=== PATIENT | female | born 1980 | race American Indian/Alaskan Native ===

== ENCOUNTER 2018-11-10 09:51 | Emergency (ER) | payer BC ==
[2018-11-10 10:07] VITALS: BP 117/78; PULSE 86; RESP 16; TEMP 98.3; O2SAT 98
[2018-11-10 10:37] LABS: SQUAMOUS EPITHIAL 10 /hpf (0-5); URINE BACTERIA RARE (<OCC); URINE BILIRUBIN NEGATIVE (NEGATIVE); URINE BLOOD 1+ (NEGATIVE); URINE CLARITY Hazy (Clear); URINE COLOR Yellow (YELLOW); URINE GLUCOSE (UA) NORMAL (Normal); URINE LEUKOCYTE ESTERASE 3+ Leu/uL (Negative); URINE PROTEIN NEGATIVE (NEGATIVE); URINE UROBILINOGEN NORMAL mg/dL (0.2-1.0)
--- NOTE | 2018-11-10 11:02 | C.PDOC ---
History Of Present Illness 37 y/o female with PMHx of asthma presents to the ED complaining of urinary frequency for the past 2 days. Of note patient is s/p partial hysterectomy on 10/01/18, and reports some soreness to her lower abdomen since the procedure. She last followed up with her video conference specialist last week, and was told everything was healing well. She denies any dysuria, hematuria, fever, chills, or vaginal bleeding. Patient reports some left flank pain as well. Time Seen by Provider: 11/10/18 10:02 Chief Complaint (Nursing): Female Genitourinary History Per: Patient History/Exam Limitations: no limitations Onset/Duration Of Symptoms: Days (x2) Current Symptoms Are (Timing): Still Present Associated Symptoms: Urinary Symptoms Past Medical History Reviewed: Historical Data, Nursing Documentation, Vital Signs Vital Signs: Last Vital Signs Temp 98.3 F 11/10/18 10:01 Pulse 86 11/10/18 10:01 Resp 16 11/10/18 10:01 BP 117/78 11/10/18 10:01 Pulse Ox 98 11/10/18 10:01 - Medical History PMH: Asthma Other Surgeries: Partial hysterectomy 10/01/18 Family History: States: Unknown Family Hx - Social History Hx Tobacco Use: No Hx Alcohol Use: No Hx Substance Use: No - Immunization History Hx Tetanus Toxoid Vaccination: No Hx Influenza Vaccination: No Hx Pneumococcal Vaccination: No Review Of Systems Except As Marked, All Systems Reviewed And Found Negative. Constitutional: Negative for: Fever, Chills Gastrointestinal: Positive for: Abdominal Pain (lower abd, + left flank pain). Negative for: Nausea, Vomiting Genitourinary: Positive for: Frequency. Negative for: Dysuria, Hematuria, Vaginal Bleeding Skin: Negative for: Rash Physical Exam - Physical Exam Appears: Well, Non-toxic, No Acute Distress Skin: Warm, Dry Head: Atraumatic, Normacephalic Eye(s): bilateral: Normal Inspection, PERRL, EOMI Oral Mucosa: Moist Neck: Normal ROM Chest: Symmetrical Cardiovascular: Rhythm Regular, No Murmur Respiratory: Normal Breath Sounds, No Accessory Muscle Use, Other (no respiratory distress) Gastrointestinal/Abdominal: Soft, No Tenderness, No Distention, No Guarding, No Rebound, Other (Laparoscopic scars to the abdomen, well-healing) Back: No CVA Tenderness, No Vertebral Tenderness Extremity: Bilateral: Atraumatic, Normal Color And Temperature Neurological/Psych: Oriented x3, Normal Speech ED Course And Treatment O2 Sat by Pulse Oximetry: 98 (RA) Pulse Ox Interpretation: Normal Medical Decision Making Medical Decision Making: Impression: r/o UTI Plan: --Urinalysis --Urine culture UA shows (+) leuks, WBC, and rare bacteria. Patient will be treated for UTI. Disposition Counseled Patient/Family Regarding: Studies Performed, Diagnosis, Need For Followup, Rx Given - Disposition Disposition: HOME/ ROUTINE Disposition Time: 11:09 Condition: STABLE Prescriptions: Ibuprofen [Motrin] 600 mg PO TID #15 tab Nitrofurantoin Macrocrystals [Macrobid] 1 cap PO BID #14 cap Forms: [employer] (Bengali), General Discharge Instructions - POA Present On Arrival: None - Clinical Impression Clinical Impression: UTI (urinary tract infection) - Scribe Statement The provider has reviewed the documentation as recorded by the Adolph Hinds Provider Attestation: All medical record entries made by the Adolph were at my direction and personally dictated by me. I have reviewed the chart and agree that the record accurately reflects my personal performance of the history, physical exam, medical decision making, and the department course for this patient. I have also personally directed, reviewed, and agree with the discharge instructions and disposition.
== END 2018-11-10 11:19 | disposition home or self-care (01) ==
LOC: C.ER 09:51
DX: N39.0 Urinary tract infection, site not specified (principal)